=== PATIENT | female | born 2000 | race African-American/Black ===

== ENCOUNTER 2021-06-08 05:59 | Inpatient (IN) ==
[2021-06-08] MEDS ORDERED: ONDANSETRON 4 MG/2 ML VIAL IV PRN ×2 (06:20→22:02)
[2021-06-08] MEDS ORDERED: BUTORPHANOL 2 MG/ML VIAL IV PRN (06:20)
[2021-06-08] MEDS ORDERED: MEPERIDINE 50 MG/1 ML VIAL IV PRN (06:20)
[2021-06-08 06:56] LABS: Basophils % 0.4 % (0.0-0.8); Eosinophils # 0.1 10*3/uL (0.0-0.87); Eosinophils % 1.2 % (0.00-10.9); Hematocrit 34.8 VOL% (35.7-47.0); Immature Granulocytes % 1.9 %; Immature Granulocytes Absolute 0.16 #; Lymphocytes # 1.4 10*3/uL (1.4-4.0); Lymphocytes % 17.3 % (21.3-54.2); Mean Corpuscular HGB Conc 31.6 GM/DL (32-36); Mean Corpuscular Volume 89.5 FL (87-102); Mean Platelet Volume 11.4 FL (9.6-12.0); Monocytes % 10.4 % (1.7-12.7); Neutrophils % 68.8 % (38.7-73.9); Platelet Count 180 T/CUMM (130-400); Red Blood Count 3.89 MC/CUMM (3.8-5.5); Red Cell Distribution Width 15.6 % (9.3-17.3); White Blood Count 8.3 T/CUMM (4-12)
[2021-06-08 07:13] LABS: Hypochromasia 1+
[2021-06-08 07:14] LABS: Microcytosis 1+; Platelet Estimate Adequate
[2021-06-08] MEDS: LACTATED RINGERS 1,000 ML IV SCH ×2 (07:20→15:26)
[2021-06-08 07:25] LABS: Albumin 2.7 G/DL (3.4-5.0); Bilirubin,Total 0.4 MG/DL (0.20-1.00); Calcium 8.8 MG/DL (8.5-10.1); Osmolality,Calculated 269.8 MOS/KG (273-304); Potassium 3.9 MMOL/L (3.5-5.1); Total Protein 6.8 G/DL (6.4-8.2)
[2021-06-08] MEDS ORDERED: OXYTOCIN/LR 20 UNIT/1,000 ML BAG IV SCH (07:40)
[2021-06-08] MEDS ORDERED: FAMOTIDINE 20 MG/2 ML VIAL IV ONE (12:38)
[2021-06-08] MEDS ORDERED: CITRIC ACID/SODIUM CITRATE 30 ML UDCUP PO ONE (12:38)
[2021-06-08] MEDS ORDERED: LACTATED RINGERS 1,000 ML IV ONE (12:38)
[2021-06-08] MEDS ORDERED: ePHEDrine 50 MG/ML VIAL IV PRN (12:39)
[2021-06-08] MEDS ORDERED: diphenhydrAMINE 50 MG/1 ML VIAL IV PRN (12:39)
[2021-06-08] MEDS ORDERED: NALOXONE 0.4 MG/ML VIAL IV PRN (12:39)
[2021-06-08] MEDS ORDERED: fentaNYL 2 MCG/ROPIV 0.2% EPID 100 ML EPIDURAL SCH (13:00)
[2021-06-08 14:32] LABS: Amorphous Crystals,Urine Occasional /HPF (Few); Bilirubin,Urine Negative (Negative); Blood, Urine Negative (Negative); Glucose,Urine (UA) Negative (Negative); Ketones,Urine Negative (Negative); Mucus,Urine Occasional /LPF (Occasional); Nitrite,Urine Negative (Negative); Protein,Urine Negative; RBC,Urine <1 /HPF (0-4); Urine Appearance CLEAR (Clear); Urine Color Yellow (Yellow); Urine Specific Gravity 1.011 (1.001-1.035); Urine Urobilinogen < 2.0 EU/DL (0.2-1.0)
[2021-06-08] MEDS ORDERED: CARBOPROST TROMETHAMINE 250 MCG/ML AMP IM ONE (19:07)
[2021-06-08] MEDS ORDERED: METHYLERGONOVINE 0.2 MG/1 ML AMP ONE (19:07)
[2021-06-08] MEDS ORDERED: LIDOCAINE 1% 50 ML VIAL ONE (21:23)
[2021-06-08 21:42] LABS: Cord Arterial Blood HCO3 24.7 MMOL/L
[2021-06-08 21:44] LABS: Cord Venous Blood HCO3 24.8 MMOL/L; Cord Venous Blood PCO2 47.6 MMHG; Cord Venous Blood PO2 35.4
[2021-06-08] MEDS ORDERED: miSOPROStoL 200 MCG TABLET PO ONE (21:50)
[2021-06-08] MEDS ORDERED: LANOLIN 50% CREAM 0.3 OZ TUBE TOP PRN (22:02)
[2021-06-08] MEDS ORDERED: MEASLES/MUMPS/RUBELLA VACCINE 0.5 ML VIAL SUBCUT ONE (22:02)
[2021-06-08] MEDS ORDERED: ACETAMINOPHEN 325 MG TABLET PO PRN (22:02)
[2021-06-08] MEDS ORDERED: DIPH/TET/ACEL PERT BOOSTER VACCINE 0.5 ML VIAL IM ONE (22:02)
[2021-06-08] MEDS ORDERED: BISACODYL 10 MG SUPP RECTAL PRN (22:02)
[2021-06-08] MEDS ORDERED: OXYTOCIN/LR 20 UNIT/1,000 ML BAG IV ONE (22:02)
[2021-06-08] MEDS ORDERED: HYDROCORTISONE 2.5% RECTAL CREAM 30 GM TUBE TOP PRN (22:02)
[2021-06-08] MEDS ORDERED: oxyCODONE/ACETAMINOPHEN 5-325 MG TABLET PO PRN ×2 (22:02)
[2021-06-08] MEDS ORDERED: BENZOCAINE 20%/MENTHOL 0.5% SPRAY 56 GM CAN TOP PRN (22:02)
[2021-06-08] MEDS ORDERED: WITCH HAZEL PADS 100/JAR TOP PRN (22:02)
[2021-06-08] MEDS ORDERED: RHO(D) IMMUNE GLOBULIN 300 MCG SYRINGE IM ONE (22:02)
[2021-06-09] MEDS: IBUPROFEN 800 MG TABLET PO PRN ×2 (01:19→14:06)
[2021-06-09 05:48] LABS: Basophils % 0.1 % (0.0-0.8); Eosinophils % 0.4 % (0.00-10.9); Hemoglobin 10.5 GM/DL (12.0-16.0); Immature Granulocytes % 0.9 %; Lymphocytes # 1.2 10*3/uL (1.4-4.0); Lymphocytes % 10.8 % (21.3-54.2); Mean Corpuscular HGB Conc 31.8 GM/DL (32-36); Mean Corpuscular Volume 88.2 FL (87-102); Mean Platelet Volume 10.6 FL (9.6-12.0); Monocytes % 9.6 % (1.7-12.7); Neutrophils % 78.2 % (38.7-73.9); Platelet Count 165 T/CUMM (130-400); Red Blood Count 3.74 MC/CUMM (3.8-5.5); Red Cell Distribution Width 15.4 % (9.3-17.3); White Blood Count 11.4 T/CUMM (4-12)
[2021-06-09] MEDS: DOCUSATE SODIUM 100 MG CAPSULE PO SCH ×2 (08:07→20:42)
[2021-06-10] MEDS: IBUPROFEN 800 MG TABLET PO PRN (08:05)
[2021-06-10 09:01] VITALS: BP 129/64
[2021-06-10] MEDS: DOCUSATE SODIUM 100 MG CAPSULE PO SCH (09:25)
== END 2021-06-10 12:50 | disposition home or self-care (01) | DRG 806 ==
LOC: N.LD 05:59 → N.OB 06-09 00:40
PROVIDERS: ADMIT Obstetrics & Gynecology; ATTEND Obstetrics & Gynecology